=== PATIENT | male | born 1955 | race Caucasian/White ===

== ENCOUNTER 2020-08-29 08:24 | Outpatient (CLI) | payer BC, SELFPAY ==
--- NOTE | 2020-08-29 09:00 | CT_ITS ---
WS: [id number] CT RIGHT HIP, NONCONTRAST. HISTORY: M25.551 - Pain in right hip Technique: All CT scans at [facility] use at least one of these dose optimization techniq ues: automated exposure control; mA and/or kV adjustment per patient size (includes targeted exams wh ere dose is matched to clinical indication); or iterative reconstruction. DLP: 2038.59 mGy.cm COMPARISON: 09/28/2011 radiograph. No acute fracture or displacement. Mild diffuse narrowing of the hip joint. Slightly more medial migr ation with near bone upon bone contact along the posterior medial acetabulum. Mild osteophytic ridgin g around the acetabulum. There is a subchondral cyst measuring 13 mm in the posterior acetabulum. No loose bodies or fracture. No SI joint erosions or fusion. No soft tissue abnormality. CT/CT hip RT wo con* [id number] IMPRESSION: 1. Mild degenerative joint disease involving the RIGHT hip. 2. There is mild bone upon bone contact involving the posterior medial femoral head and acetabulum. 3. Mild osteophytic ridging around the acetabulum.
== END 2020-08-29 08:25 | disposition home or self-care (01) ==
LOC: RAD 08:27
PROVIDERS: PCP Nurse Practitioner Family; Visit Provider Nurse Practitioner Family
DX: M16.11 Unilateral primary osteoarthritis, right hip (principal)
CPT/HCPCS: 73700

== ENCOUNTER 2020-12-02 13:05 | Emergency (ER) | payer BC, SELFPAY ==
[2020-12-02 13:52] VITALS: BP 130/82; PULSE 91; RESP 18; TEMP 36.6; O2SAT 100; BMI 32.3
[2020-12-02 15:58] VITALS: BP 127/86; PULSE 57; RESP 18; O2SAT 100
[2020-12-02 16:00] VITALS: PULSE 55
--- NOTE | 2020-12-02 16:13 | ED_ITS ---
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 Patient was in the hospital with Lovenox and then discharged home on Xarelto after being stable. Patient's pulse ox is 99% on room air blood pressure 127/86 heart rate 55. Patient does not have any acute distress. Patient does not wearing a leg stocking. Patient has no complaints of chest pain. Patient states he was discharged home and advised to follow-up with his primary care physician but his PCP is out of town on vacation. Patient states he has not some questions and wanted to get a second opinion on his treatment and care. I did offer to get the patient's medical records from previous facility and evaluation but the patient declined. Mainly just wanted discuss options with PE and DVT treatment and options. 1-0 nylon he would be on the medications and we discussed compression stockings and PO hoses. Patient has no specific medical complaints other than just information request only MD Complaint: extremity pain and extremity swelling Onset (ago): day(s) Pain Consistency: constant Location: right and lower extremity Associated symptoms: Deny chest pain, fever(s) or rash Review of Systems General: Reports: 10 or more systems reviewed and unremarkable except in HPI and below Const: Denies: fever(s), chills, body aches or fatigue Eyes: Denies: change in vision or blurry vision ENMT: Denies: throat pain, hoarseness or mouth pain Card: Denies: chest pain, palpitations, irregular heart rhythm, edema, swelling of feet/ankles or lightheadedness Resp: Denies: dyspnea, productive cough, non-productive cough, wheezing or pain on inspiration GI: Denies: abdominal pain, nausea or vomiting : Denies: flank pain, dysuria, urinary frequency, urinary urgency or urinary hesitancy Musc: Reports: extremity pain and extremity swelling; Denies: neck pain, back pain, joint pain, joint swelling, joint redness, joint warmth or limited range of motion Skin/Breast: Denies: rash, pruritus, erythema or skin tenderness Neuro: Denies: headache(s), numbness in extremities or weakness in extremities Psych: Denies: anxiety or depression PFSH ED PFSH: Surgical History H/O shoulder surgery Family History Father Diabetes Chronic kidney disease (CKD) Mother Dementia Social History Smoking and tobacco status: former smoker Second hand smoke exposure: No Adopted: No Lives independently: Yes Household members: spouse Housing: House Marital status: Physical Exam Const: COMMON NORMALS: no acute distress, average body habitus, patient oriented x3, no limitations, healthy appearing, alert and well nourished HENMT: COMMON NORMALS: normocephalic, atraumatic, hearing grossly normal bilaterally, external ears normal, EAC's normal, TM's normal bilaterally, Normal external nose present, Normal nasal mucous membranes and turbinates present, moist oral mucous membranes, oropharynx normal, dentition normal and gingiva normal HEAD & SCALP: normocephalic and atraumatic NOSE: Normal external nose present and Normal nasal mucous membranes and turbinates present EXTERNAL EAR: Yes external ears normal EXTERNAL AUDITORY CANAL: EAC's normal TYMPANIC MEMBRANE: TM's normal bilaterally Neck/C-Spine: COMMON NORMALS: full ROM, no lymphadenopathy, supple, no meningeal signs, no JVD, Thyroid normal and No carotid bruits THYROID: Thyroid normal Chest: COMMONS NORMALS: normal inspection of the chest, normal palpation of entire chest wall, normal inspection of the breasts and normal palpation of the breasts Breast/axilla inspection: Yes normal inspection of the breasts BREAST/AXILLA PALPATION: Yes normal palpation of the breasts Resp: COMMON NORMALS: normal respiratory effort, No retractions, No use of accessory muscles, clear to auscultation bilaterally and percussion normal AUSCULTATION: clear to auscultation bilaterally PERCUSSION: percussion normal Cardio: COMMON NORMALS: no JVD, regular rate, regular rhythm, S1 normal heart sound present, S2 normal heart sound present, No gallops present (Cardio), No clicks present (Cardio), No murmurs present (Cardio), No rub (Cardio) and Peripheral pulses 2+ throughout RATE: regular rate RHYTHM: regular rhythm HEART SOUNDS: S1 normal heart sound present and S2 normal heart sound present PERIPHERAL PULSES: Peripheral pulses 2+ throughout GI: COMMON NORMALS: Normal to inspection, nondistended, normoactive bowel sounds present, Soft to palpation, non-tender, No hepatosplenomegaly present, no masses and no bruits PALPATION: Yes Soft to palpation and Yes No hepatosplenomegaly present : COMMON NORMALS: Yes no CVA tenderness BLADDER/KIDNEY EXAM: Yes no CVA tenderness Back/Pelvis: COMMON NORMALS: no CVA tenderness, thoracic and lumbar spine normal to inspection, no thoracic nor lumbar tenderness, thoraco-lumbar ROM normal and straight leg raise negative bilaterally Extremity: COMMON NORMALS: normal to inspection, full ROM, capillary refill normal, no joint enlargement, no clubbing, cyanosis or edema, no calf tenderness and no pedal edema Neuro: COMMON NORMALS: patient oriented x3 SENSORIUM/ORIENTATION: Yes alert MENINGEAL SIGNS: Yes no meningeal signs Course Vital Signs: Vital signs: Vital Signs Temperature 97.9 F 12/02/20 13:52 Pulse Rate 91 12/02/20 13:52 Respiratory Rate 18 12/02/20 13:52 Blood Pressure 130/82 12/02/20 13:52 Pulse Oximetry 100 12/02/20 13:52 MDM - Extremity (Nontraumatic) MDM Narrative: Medical decision making narrative: 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 Patient was in the hospital with Lovenox and then discharged home on Xarelto after being stable. Patient's pulse ox is 99% on room air blood pressure 127/86 heart rate 55. Patient does not have any acute distress. Patient does not wearing a leg stocking. Patient has no complaints of chest pain. Patient states he was discharged home and advised to follow-up with his primary care physician but his PCP is out of town on vacation. Patient states he has not some questions and wanted to get a second opinion on his treatment and care. I did offer to get the patient's medical records from previous facility and evaluation but the patient declined. Mainly just wanted discuss options with PE and DVT treatment and options. 1-0 nylon he would be on the medications and we discussed compression stockings and PO hoses. Patient has no specific medical complaints other than just information request only To ease the pain and swelling of a DVT, you can try the following at home: Wear graduated compression stockings. These specially fitted stockings are tight at the feet and become gradually looser up on the leg, creating gentle pressure that keeps blood from pooling and clotting. Elevate the affected leg. Make sure your foot is higher than your hip. Take walks. Aim for walks three to five times a day to improve blood flow to your legs. After you have a DVT, you will need to reduce your risk of future clots by: Taking your medications exactly as your doctor tells you to. Keeping your follow-up appointments with your doctor and the laboratory. These are needed to see how well your treatment is working. If you have never had a DVT , but have an increased risk of developing one, be sure to: Exercise your lower leg muscles if you need to sit still for a long time. Stand up and walk at least every half hour if you are on a long flight. Or get out of the car every hour if you are on a long road trip. Get out of bed and move around as soon as you can after you are sick or have surgery. The sooner you move around, the less chance you have of developing a clot. Take medications or use compression stockings after surgery (if prescribed by your doctor) to reduce your risk of a clot. Follow-up with your doctor as directed to and follow your doctor?s recommendations to reduce your risk of a clot. Discharge Plan Discharge Patient Disposition: Home Clinical Impression: DVT (deep venous thrombosis), Pulmonary embolism, Encounter for medical screening examination Condition: Stable Prescriptions: No Action lisinopril 20 mg tablet 20 mg PO DAILY@0900 RF: 0 hydrochlorothiazide 25 mg tablet 25 mg PO DAILY@0900 RF: 0 oxycodone-acetaminophen 10-325 mg tablet 1 tab PO TID PRN (Reason: Pain) RF: 0 Xarelto DVT-PE Treat 30d Start 15 mg (42)- 20 mg (9) Tablets,Dose Pack 0 ea PO PER PKG DIR RF: 0 Discharge Orders: Discharge ED (Routine); Ordered 12/02/20 Ordered By: Mitesh Bradford Referrals: Brandi Rizo FNP [Primary Care Provider] - Discharge Diet: Advance as tolerated Discharge Activity: Increase activity as tolerated Patient Instructions: Opioid Safety Activity Restrictions/Additional Instructions: To ease the pain and swelling of a DVT, you can try the following at home: Wear graduated compression stockings. These specially fitted stockings are tight at the feet and become gradually looser up on the leg, creating gentle pressure that keeps blood from pooling and clotting. Elevate the affected leg. Make sure your foot is higher than your hip. Take walks. Aim for walks three to five times a day to improve blood flow to your legs. After you have a DVT, you will need to reduce your risk of future clots by: Taking your medications exactly as your doctor tells you to. Keeping your follow-up appointments with your doctor and the laboratory. These are needed to see how well your treatment is working. If you have never had a DVT , but have an increased risk of developing one, be sure to: Exercise your lower leg muscles if you need to sit still for a long time. Stand up and walk at least every half hour if you are on a long flight. Or get out of the car every hour if you are on a long road trip. Get out of bed and move around as soon as you can after you are sick or have surgery. The sooner you move around, the less chance you have of developing a clot. Take medications or use compression stockings after surgery (if prescribed by your doctor) to reduce your risk of a clot. Follow-up with your doctor as directed to and follow your doctor?s recommendations to reduce your risk of a clot. For constipation take [id number] Senokot 8.6 mg daily. May also mix up will recall a brown cow. Mix 4 ounces of prune juice with 2 tablespoons of salted butter and 2 ounces of milk of magnesium heat and microwave until bladder is softened mix and serve warm do not drink hot. May take daily until symptoms are relieved. Coding Level of Care Code ED Client Care Specialist for Angelo Guzman
[2020-12-02 16:15] VITALS: BP 127/86; PULSE 54; RESP 16; O2SAT 98
[2020-12-02 16:28] VITALS: BP 127/86; PULSE 55; RESP 18; TEMP 37.2; O2SAT 98
== END 2020-12-02 16:33 | disposition home or self-care (01) ==
PROVIDERS: Emergency Provider Emergency Medicine; PCP Nurse Practitioner Family
DX: I26.99 Other pulmonary embolism without acute cor pulmonale (principal); I82.409 Acute embolism and thrombosis of unspecified deep veins of unspecified lower extremity
CPT/HCPCS: 99282

== ENCOUNTER 2021-03-10 09:48 | Outpatient (CLI) | payer BC, SELFPAY ==
--- NOTE | 2021-03-10 10:15 | USCV_ITS ---
Blair Alberto Age: 65 Gender: M : 1955 Exam Date: 03/10/2021 10:15 Ordering Phys: Woodrow Cardona MD Technologist: Emmanuelle Crump Exam Location: [facility] [place]_ Indication: H/O RLE DVT. PT ON BLOOD THINNERS HISTORY: History of deep venous thrombosis. PROCEDURES: Venous duplex imaging was performed in bilateral lower extremities. The following venous structures were evaluated: common femoral vein, profunda vein, proximal portion of the greater saphenous vein, superficial femoral vein, and the popliteal vein. In addition, the posterior tibial and peroneal trunk were evaluated. Serial compression, augmentation maneuvers, and spectral Doppler flow evaluation were performed. FINDINGS: Evidence of indeterminate partial deep vein thrombosis in the right popliteal vein with normal flow dynamics. Clot is retracting suggesting may not be acute. The remaining veins are normal. CONCLUSIONS Indeterminate but likely chronic partial DVT right popliteal vein. Dr. Amparo Heredia DO (Electronically Signed) Final Date: 10 March 2021 11:22 S
[2021-03-10 11:21] LABS: D Dimer <= 0.27 ug/mIFEU (0-0.59)
[2021-03-10 11:30] LABS: Anion Gap 14.2 (5-19); Blood Urea Nitrogen 19 mg/dL (8-23); Calcium 9.1 mg/dL (8.5-10.5); Carbon Dioxide 27 mmol/L (22-29); Chloride 105 mmol/L (98-107); Glucose 86 mg/dL (65-115); Osmolality Calculated 296 mOsm/kg (285-295); Potassium 4.2 mmol/L (3.5-5.1); Sodium 142 mmol/L (136-145)
== END 2021-03-10 09:49 | disposition home or self-care (01) ==
LOC: RAD 09:54
PROVIDERS: PCP Nurse Practitioner Family; Visit Provider Internal Medicine Pulmonary Disease
DX: I26.99 Other pulmonary embolism without acute cor pulmonale (principal); I82.431 Acute embolism and thrombosis of right popliteal vein
CPT/HCPCS: 80048; 85378; 93970

== ENCOUNTER 2021-04-01 10:33 | Outpatient (CLI) | payer BC, SELFPAY ==
--- NOTE | 2021-04-01 11:30 | CT_ITS ---
WS: [id number] CTA scan of the chest with IV contrast. Additional two-dimensional coronal and sagittal reconstructio n and MIP images was performed. 04/01/2021. Clinical Data: I26.99 - Other pulmonary embolism without acute cor pulmo... Comparison: CTA chest, 11/29/2020. DLP: 818.[address] scans at [facility] use at least one of these dose optimization techniques: automated e xposure control; mA and/or kV adjustment per patient size (includes targeted exams where dose is matc hed to clinical indication); or iterative reconstruction. Findings: The central pulmonary arteries and peripheral pulmonary arteries fill normally with no evidence of in traluminal filling defects. No pulmonary embolic disease is noted. No nodules, masses or effusions are seen. No pneumonia or pneumothorax is seen. The heart size is nor mal with no pericardial effusion. There is minimal coronary artery calcification. The pulmonary arter ial system and thoracic aorta demonstrate no abnormalities or dilatations. There is no axillary or si gnificant mediastinal adenopathy. There is a small hiatal hernia. The thyroid gland shows normal enha ncement. The trachea bifurcates into the bronchi. The upper abdomen shows no abnormalities. The visualized liver, spleen, pancreas, gallbladder, adrena l glands and superior poles of the kidneys are not remarkable. The bones of the thoracic and upper lumbar spine show osteoarthritis. CT/CT angio chest PE protcl [id number] Impression: 1. Negative for pulmonary embolic disease. 2. Negative for acute cardiopulmonary disease.
[2021-04-01] MEDS: iohexol 350 mg/mL 100 mL Btl IV (11:43)
== END 2021-04-01 10:34 | disposition home or self-care (01) ==
PROVIDERS: PCP Nurse Practitioner Family; Visit Provider Internal Medicine Pulmonary Disease
DX: I26.99 Other pulmonary embolism without acute cor pulmonale (principal)
CPT/HCPCS: 71275; Q9967

== ENCOUNTER 2021-07-17 14:32 | Outpatient (CLI) | payer MEDICARE, SELFPAY ==
--- NOTE | 2021-07-17 15:00 | USCV_ITS ---
Blair Alberto Age: 66 Gender: M : 1955 Exam Date: 07/17/2021 14:55 Ordering Phys: Woodrow Cardona MD Technologist: RAYMOND [place]am [place] [facility] [place]ication: DVT HISTORY: History of deep venous thrombosis. PROCEDURES: Venous duplex imaging was performed in bilateral lower extremities. The following venous structures were evaluated: common femoral vein, profunda vein, proximal portion of the greater saphenous vein, superficial femoral vein, and the popliteal vein. In addition, the posterior tibial and peroneal trunk were evaluated. FINDINGS: Normal 2-D Doppler and augmentation and compressibility throughout the lower extremity venous structures. Additional imaging through the proximal calf veins also reveals no thrombus. Limited evaluation of the greater saphenous vein is patent with no thrombus. CONCLUSIONS No DVT bilateral lower extremities. Dr. Amparo Heredia DO (Electronically Signed) Final Date: 17 July 2021 16:17 S
== END 2021-07-17 14:33 | disposition home or self-care (01) ==
PROVIDERS: PCP Nurse Practitioner Family; Visit Provider Internal Medicine Pulmonary Disease
DX: I82.431 Acute embolism and thrombosis of right popliteal vein (principal); Z74.09 Other reduced mobility
CPT/HCPCS: 93970

== ENCOUNTER → 2022-04-02 09:07 | Outpatient (BNVA) | payer MEDICARE, SELFPAY | PROVIDERS: PCP Nurse Practitioner Family; Visit Provider Internal Medicine Pulmonary Disease | DX: J84.10 Pulmonary fibrosis, unspecified (principal); Z86.718 Personal history of other venous thrombosis and embolism; Z86.711 Personal history of pulmonary embolism; K76.0 Fatty (change of) liver, not elsewhere classified; Z79.01 Long term (current) use of anticoagulants; Z91.89 Other specified personal risk factors, not elsewhere classified | CPT/HCPCS: 80048; 83735; 85378; 99214 ==

== ENCOUNTER 2022-08-25 06:33 | Outpatient (CLI) | payer MEDICARE, SELFPAY ==
--- NOTE | 2022-08-25 07:00 | CT_ITS ---
WS: [id number] CT HEAD NONCONTRAST HISTORY: R42 - Dizziness and giddiness TECHNIQUE: Contiguous axial imaging performed through the brain in 2.5 mm imaging. Bone and soft tiss ue windows. Sagittal and coronal reformats reviewed. All CT scans at [facility] use at least one of these dose optimization techniques: automated exposure control; mA and/or kV adjustment per pa tient size (includes targeted exams where dose is matched to clinical indication); or iterative recon struction. DLP: 1190.29 mGy.cm COMPARISON: None available. No acute intracranial hemorrhage, midline shift or mass effect. Very mild cerebral atrophy and small vessel ischemic disease. No volume loss or acute infarct. Ventricles: Normal size with no hydrocephalus. No inferior displacement of cerebellar tonsils. Paranasal sinuses: As visualized are clear. Mastoid air cells: Well pneumatized. Calvarium and scalp: Skull is intact with no soft tissue edema or swelling. CT/CT head wo con* [id number] IMPRESSION: 1. No acute intracranial hemorrhage or edema. 2. Very mild atrophy and small vessel ischemic disease.
== END 2022-08-25 06:34 | disposition home or self-care (01) ==
LOC: RAD 06:35
PROVIDERS: PCP Nurse Practitioner Family; Visit Provider Nurse Practitioner Family
DX: R42 Dizziness and giddiness (principal); R29.6 Repeated falls; R41.3 Other amnesia; I67.82 Cerebral ischemia; G31.9 Degenerative disease of nervous system, unspecified
CPT/HCPCS: 70450

== ENCOUNTER → 2022-08-26 09:35 | Outpatient (BNVA) | payer MEDICARE, SELFPAY | PROVIDERS: PCP Nurse Practitioner Family; Visit Provider Nurse Practitioner Family | DX: I10 Essential (primary) hypertension (principal); R53.83 Other fatigue | CPT/HCPCS: 80053; 80061; 85025 ==

== ENCOUNTER 2022-09-14 10:54 | Outpatient (CLI) | payer MEDICARE, SELFPAY ==
--- NOTE | 2022-09-14 11:00 | MR_ITS ---
WS: [id number] MRI RIGHT HIP without CONTRAST. COMPARISON: No similar studies. CT RIGHT hip 08/29/2020. Multiplanar, multisequence imaging is performed without contrast. No acute fractures or marrow edema. SI joints are normal. No significant loss of joint space involvin g either hip. There is very subtle increased signal on the STIR and T2 sequences in the far lateral superior RIGHT labrum. Most consistent with a subtle labral tear. There is also slight increased amount of fluid in the RIGHT hip joint as compared to the LEFT although still only minimal amount of fluid. No fractures or marrow edema. No osteochondral lesions. Reidentified is the subchondral cyst in the p osterior acetabulum which was noted on the prior CT. Subchondral cyst measures 14 x 7 mm. No loose kaylie dies are identified. Negative urinary bladder. No free fluid in the pelvis. Small right-sided hydrocele. MR/MR hip RT wo con* [id number] IMPRESSION: 1. Subtle abnormal signal in the RIGHT hip labrum. Associated very minimal inc rease fluid as compared to the LEFT hip. Highly suspicious for a labral tear. 2. No marrow edema or fracture. No osteochondral lesions.
== END 2022-09-14 10:55 | disposition home or self-care (01) ==
PROVIDERS: PCP Nurse Practitioner Family; Visit Provider Nurse Practitioner Family
DX: M25.551 Pain in right hip (principal)
CPT/HCPCS: 73721

== ENCOUNTER → 2022-10-18 07:59 | Outpatient (BNVA) | payer MEDICARE, SELFPAY | PROVIDERS: PCP Nurse Practitioner Family; Visit Provider Specialist | DX: M25.551 Pain in right hip (principal); S73.191A Other sprain of right hip, initial encounter; X58.XXXA Exposure to other specified factors, initial encounter | CPT/HCPCS: 73502; 99204 ==

== ENCOUNTER → 2022-11-15 07:56 | Outpatient (BNVA) | payer MEDICARE, SELFPAY | PROVIDERS: PCP Nurse Practitioner Family; Visit Provider Anesthesiology Pain Medicine | DX: M51.16 Intervertebral disc disorders with radiculopathy, lumbar region (principal) | CPT/HCPCS: 99204 ==

== ENCOUNTER → 2022-11-15 10:31 | Outpatient (BNVA) | payer MEDICARE, SELFPAY | PROVIDERS: PCP Nurse Practitioner Family; Visit Provider Anesthesiology Pain Medicine | DX: M54.16 Radiculopathy, lumbar region (principal) | CPT/HCPCS: 72110 ==

== ENCOUNTER 2022-12-20 08:32 | Outpatient (CLI) | payer MEDICARE, SELFPAY ==
--- NOTE | 2022-12-20 08:45 | MR_ITS ---
WS: [id number] MRI LUMBAR SPINE NONCONTRAST TECHNIQUE: Sagittal T1, T2 and STIR imaging. Axial T1 and T2 imaging. CLINICAL INFORMATION: M54.16 - Radiculopathy, lumbar region COMPARISON: CT lumbar 2016 and MRI 2012 FINDINGS: Mild lumbar curve. No acute compression. Disc space narrowing worse L4-L5 with endplate degenerative change. Slight retrolisthesis L4 on L5. Mild disc bulging L3-L4. . L1-L2: Mild facet arthropathy. Spinal canal and foramen are patent. L2-L3: Mild facet arthropathy. Spinal canal and foramen are patent. L3-L4: Mild disc bulging with narrowing of the RIGHT greater than LEFT subarticular recess. Mild cent ral canal stenosis. Moderate facet arthropathy. Mild LEFT greater than RIGHT foraminal narrowing. L4-L5: Disc osteophyte complex with endplate ridging. Narrowing of the RIGHT subarticular recess. Mil d to moderate RIGHT and mild LEFT foraminal narrowing. Moderate facet arthropathy. L5-S1: No significant disc bulging. Spinal canal and foramen are patent. Moderate facet arthropathy. Visualized pelvic bony structures: T2 hyperintense lesion in the S3 vertebral body appears stable sin ce 2012 likely atypical hemangioma. Paravertebral soft tissues: Normal. Tiny protrusion in the cervical spine at C5-C6. MR/MR lumbar spine wo con* [id number] IMPRESSION: 1. Mild lumbar curve. No acute compression. Slight retrolisthesis L4 on L5. 2. Disc desiccation worse L4-L5 with slight retrolisthesis. 3. Mild central canal stenosis L3-L4 and impingement RIGHT subarticular recess and traversing RIGHT L4 nerve root. 4. Mild LEFT greater than RIGHT L3-L4 foraminal narrowing. 5. Mild to moderate RIGHT L4-L5 foraminal narrowing. Slight impingement on the traversing RIGHT L5 nerve root at the L4-L5 level. 6. Moderate facet arthropathy L3-L5.
== END 2022-12-20 08:33 | disposition home or self-care (01) ==
LOC: RAD 08:34
PROVIDERS: PCP Nurse Practitioner Family; Visit Provider Anesthesiology Pain Medicine
DX: M54.16 Radiculopathy, lumbar region (principal); M47.896 Other spondylosis, lumbar region
CPT/HCPCS: 72148; 99204

== ENCOUNTER → 2022-12-27 08:33 | Outpatient (BNVA) | payer MEDICARE, SELFPAY | PROVIDERS: PCP Nurse Practitioner Family; Visit Provider Anesthesiology Pain Medicine | DX: M51.16 Intervertebral disc disorders with radiculopathy, lumbar region (principal) | CPT/HCPCS: 99214 ==

== ENCOUNTER → 2023-02-23 14:42 | Outpatient (BNVA) | payer MEDICARE, SELFPAY | PROVIDERS: PCP Nurse Practitioner Family; Visit Provider Nurse Practitioner Family | DX: M25.50 Pain in unspecified joint (principal); G51.0 Bell's palsy; M10.9 Gout, unspecified | CPT/HCPCS: 84550; 85025 ==

== ENCOUNTER → 2023-04-25 08:31 | Outpatient (BNVA) | payer MEDICARE, SELFPAY | PROVIDERS: PCP Nurse Practitioner Family; Visit Provider Anesthesiology Pain Medicine | DX: M51.16 Intervertebral disc disorders with radiculopathy, lumbar region (principal) | CPT/HCPCS: 99214 ==

== ENCOUNTER → 2023-05-09 13:57 | Outpatient (BNVA) | payer MEDICARE, SELFPAY | PROVIDERS: PCP Nurse Practitioner Family; Visit Provider Anesthesiology Pain Medicine | DX: M54.16 Radiculopathy, lumbar region (principal) | CPT/HCPCS: 64483; 64484; J1100; J3490 ==

== ENCOUNTER → 2023-05-10 08:08 | Outpatient (BNVA) | payer MEDICARE, SELFPAY | PROVIDERS: PCP Nurse Practitioner Family; Referring Provider Anesthesiology Pain Medicine; Visit Provider Orthopaedic Surgery | DX: M51.16 Intervertebral disc disorders with radiculopathy, lumbar region (principal); M48.062 Spinal stenosis, lumbar region with neurogenic claudication | CPT/HCPCS: 72100; 99204 ==

== ENCOUNTER → 2023-05-24 07:47 | Outpatient (BNVA) | payer MEDICARE, SELFPAY | PROVIDERS: PCP Nurse Practitioner Family; Visit Provider Orthopaedic Surgery | DX: M48.062 Spinal stenosis, lumbar region with neurogenic claudication (principal); M51.16 Intervertebral disc disorders with radiculopathy, lumbar region; R25.1 Tremor, unspecified; Z01.89 Encounter for other specified special examinations | CPT/HCPCS: 36415; 80053; 81003; 84439; 84443; 84481; 85025; 99214 ==

== ENCOUNTER → 2023-06-07 14:40 | Outpatient (BNVA) | payer MEDICARE, SELFPAY | PROVIDERS: PCP Nurse Practitioner Family; Visit Provider Nurse Practitioner Family | DX: M10.9 Gout, unspecified | CPT/HCPCS: 84550 ==

== ENCOUNTER 2023-06-13 10:56 | Day surgery (SDC) | payer MEDICARE, SELFPAY ==
[2023-06-13] VITALS (10 sets, daily range): BP systolic 100–154; BP diastolic 58–88; PULSE 55–78; RESP 14–21; TEMP 36.1–36.4; O2SAT 97–100; BMI 31.8
[2023-06-13] MEDS: sodium chloride 0.9% 1,000 ML 30 ML IV (11:43)
--- NOTE | 2023-06-13 13:37 | W.PM.OPSUD ---
Surgery/Procedure H&P Update DATE OF PROCEDURE: June 13, 2023 DATE H&P PERFORMED: 06/09/23 H&P UPDATE INFORMATION: I have reviewed H&P completed within last 30 days, I have examined patient prior to procedure and No changes to prior documentation PREOP DIAGNOSIS: Lumbar stenosis PLANNED PROCEDURE: Operation Date: 06/13/23 12:50 Proposed Procedures p Right L3/4 L4/5 Lumbar Spine Decompression(Right) - Anoop Dubon DO
[2023-06-13] MEDS: ceFAZolin 2,000 MG in sodium chloride 0.9% (plus) 50 ML 100 MG IV (14:06)
[2023-06-13] MEDS: thrombin 5,000 unit SDV 5000 UNIT XX (14:36)
[2023-06-13] MEDS: lidocaine-epi 1% 20 mL INJ INJECTION (14:36)
--- NOTE | 2023-06-13 15:44 | PM.OP ---
Operative Report Date of procedure: June 13, 2023 Pre-op diagnosis: Lumbar stenosis with neurogenic claudication Post-op diagnosis: same Procedure done: 1. L3-4 laminectomy with partial facetectomy 2. L4-5 laminectomy with partial facetectomy Surgeon: Anoop Dubon DO Estimated blood loss (mL): 20 Procedure: 1. L3-4 laminectomy with partial facetectomy 2. L4-5 laminectomy with partial facetectomy Patient is brought to the operative suite. After undergoing anesthesia they are placed in the prone position. All areas of impingement are well padded. Patient is then prepped and draped in the normal sterile fashion. A skin incision is made over the L3-4 level. This is confirmed under c-arm guidance. A series of dilators are passed and the tubular retractor is docked on the L 3 lamina. A bovie is used to clear the soft tissue off the lamina and the L 3 4 facet joint. A high speed poli is then used to perform the laminectomy and take down the medial aspect of the L 3 4 facet joint. A kerrison rongeure was then used to take down the remaining lamina and smooth the edge of the laminectomy up to the point where the ligamentum flavum attaches. Attention was then brought to the medial aspect of the facet joint. The remaining medial aspect of the superior and inferior aspect of the facet joint were taken down with the kerrison from the pedicle of L 3 to L 4. The facet joint had significant hypertrophy. Attention was then brought to the Ligamentum Flavum. The ligament was taken down from the lamina of L3 to L4 and out medially to the remaining facet joint. The ligament was thick. The dura was then exposed. The dura was in good repair. The L3 nerve was then traced with a curette out the L3/4 foramen and found to be adequately decompressed. The L4 nerve was traced with a curette around the L4 pedicle. The lateral recess was opened with a kerrison helping to further decompress the L4 nerve. Wound is then irrigated copiously with saline and surgiflo is used to stop any bleeding. The tubular retractor is removed and the A skin incision is made over the L4/5 level. This is confirmed under c-arm guidance. A series of dilators are passed and the tubular retractor is docked on the L4 lamina. A bovie is used to clear the soft tissue off the lamina and the L 4/5 facet joint. A high speed poli is then used to perform the laminectomy and take down the medial aspect of the L 4/5 facet joint. A kerrison rongeure was then used to take down the remaining lamina and smooth the edge of the laminectomy up to the point where the ligamentum flavum attaches. Attention was then brought to the medial aspect of the facet joint. The remaining medial aspect of the superior and inferior aspect of the facet joint were taken down with the kerrison from the pedicle of L4 to L 5. The facet joint had significant hypertrophy. Attention was then brought to the Ligamentum Flavum. The ligament was taken down from the lamina of L4 to L5 and out medially to the remaining facet joint. The ligament was thick. The dura was then exposed. The dura was in good repair. The L4 nerve was then traced with a curette out the L4/5 foramen and found to be adequately decompressed. The L5 nerve was traced with a curette around the L5 pedicle. The lateral recess was opened with a kerrison helping to further decompress the L5 nerve. Wound is then irrigated copiously with saline and surgiflo is used to stop any bleeding. The tubular retractor is removed and the wound is closed with vicryl and monocryl suture. Glue is then used to protect the wound. A sterile dressing is then placed. Patient was then placed in the supine position and transferred to the PACU in stable condition.
[2023-06-13] MEDS: HYDROcodone-acetaminophen 5-325 mg Tablet 1 TAB PO (16:24)
--- NOTE | 2023-06-13 16:40 | XR_ITS ---
WS: [id number] C-ARM RADIOGRAPHS LUMBAR SPINE; 5 IMAGES HISTORY: Decompression. COMPARISON: None available. Intraoperative imaging during lumbar spine decompression. Marker is indicating L4-5 level. IMPRESSION: Intraoperative imaging during spine decompression.
[2023-06-13] MEDS: ondansetron 2 mg/ML SDV 2 mL 4 MG IVP (16:46)
--- NOTE | 2023-06-13 17:56 | P.ANESASSM_ITS ---
Pre-Anesthetic Assessment Height/Weight: Height 1.8 m Weight 103.419 kg Temp Pulse Resp BP Pulse Ox O2 Del Method O2 Flow Rate 97.3 F L 68 14 138/88 100 Room Air 6 06/13/23 16:00 06/13/23 16:50 06/13/23 16:50 06/13/23 16:50 06/13/23 16:50 06/13/23 16:50 06/13/23 15:35 Preop Diagnosis: Lumbar stenosis Operation Date: 06/13/23 12:50 Proposed Procedures p Right L3/4 L4/5 Lumbar Spine Decompression(Right) - Anoop Dubon, Familial anesthetic complications: none Was Beta Mirtha taken within 24 hours: N/A Was Clonidine taken within 24 hours: N/A Last intake: Intake Last Liquid Date 06/12/23 Last Liquid Time 17:00 Last Solid Date 06/12/23 Last Solid Time 13:00 Social No alcohol and No tobacco Exam alert, oriented x 3, clear to auscultation bilaterally and regular rate & rhythm Airway Submandibular: within normal limits Cervical ROM: within normal limits Mallampati: Class II Dentition: full CV/HEM Hypertension Musc/skel Lower Back Pain and Osteoarthritis/DJD Anesthetic Plan ASA status: 3 Anesthesia: General Medications/Allergies Home Medications Medication Instructions Recorded Confirmed Last Taken Type acetaminophen 325 mg capsule 650 mg PO QID PRN Pain 11/15/22 06/13/23 1 Week Ago History ~06/06/23 colchicine (gout) 0.6 mg capsule 0.6 mg PO BID 3 days #6 caps 06/07/23 06/13/23 1 Week Ago Rx ~06/06/23 apixaban 5 mg tablet (Eliquis) 5 mg PO BID 06/10/23 06/13/23 05/27/23 History hydrochlorothiazide 12.5 mg capsule 12.5 mg PO DAILY 06/10/23 06/13/23 06/12/23 History lisinopril 30 mg tablet 30 mg PO DAILY 06/10/23 06/13/23 06/12/23 History hydrocodone 5 mg-acetaminophen 325 1 - 2 tab PO .Q4-6H #40 tabs 06/13/23 Unknown Rx mg tablet Allergies Allergy/AdvReac Type Severity Reaction Status Date / Time No Known Allergies Allergy Verified 06/13/23 11:21 [facility] Anesthesia Surgical History H/O shoulder surgery Family History Father Diabetes Chronic kidney disease (CKD) Hypertension Mother Dementia Brother Hypertension Grandmother Stroke Denies family history of Hyperlipidemia Lung disease Cancer Social History Smoking and tobacco/nicotine status: former use of tobacco/nicotine Quit status (tobacco/nicotine): has quit using Year quit tobacco: 1975 3yrhx Second hand smoke exposure: No Alcohol intake: never Substance/Drug Use: never Adopted: No Lives independently: Yes Household members: spouse Housing: House Marital status: service: No Current occupational status: employed Pets and animals: Yes Do you think of yourself as: Straight/Heterosexual Current gender identity: Male Data Anesthesia Cardiac Studies: No Data to Display
--- NOTE | 2023-06-13 17:58 | ANE.PACU2 ---
Inpatient post-anesthesia follow up: Airway intact: Yes Vital signs: Temperature 97.3 F Pulse Rate 68 Respiratory Rate 14 Blood Pressure 138/88 Pulse Oximetry 100 Oxygen Delivery Me thod Room Air Oxygen Flow Rate 6 Fraction of Inspir ed Oxygen Hydration adequate: Yes Nausea and vomiting: No Pain level: 3 Mental status: Baseline
== END 2023-06-13 17:10 | disposition home or self-care (01) ==
PROVIDERS: PCP Nurse Practitioner Family; Visit Provider Orthopaedic Surgery
PROC: (CPT 63005; principal; 2023-06-13 12:40)
DX: M48.062 Spinal stenosis, lumbar region with neurogenic claudication (principal); I10 Essential (primary) hypertension; Z87.891 Personal history of nicotine dependence
CPT/HCPCS: 63047; 63048; 72100; 76000; J0690; J1100; J1170; J2405; J2704; J2710; J3010; J3490; J7030

== ENCOUNTER → 2023-06-21 09:42 | Outpatient (BNVA) | payer MEDICARE, SELFPAY | PROVIDERS: PCP Nurse Practitioner Family; Visit Provider Anesthesiology Pain Medicine | DX: M48.062 Spinal stenosis, lumbar region with neurogenic claudication (principal); M51.16 Intervertebral disc disorders with radiculopathy, lumbar region | CPT/HCPCS: 99214 ==

== ENCOUNTER → 2023-06-28 10:47 | Outpatient (BNVA) | payer MEDICARE, SELFPAY | PROVIDERS: PCP Nurse Practitioner Family; Visit Provider Orthopaedic Surgery | DX: Z47.89 Encounter for other orthopedic aftercare (principal) | CPT/HCPCS: 99024 ==

== ENCOUNTER → 2023-07-15 09:18 | Outpatient (BNVA) | payer MEDICARE, SELFPAY | PROVIDERS: PCP Nurse Practitioner Family; Visit Provider Nurse Practitioner Family | DX: R35.0 Frequency of micturition (principal); I10 Essential (primary) hypertension; R53.83 Other fatigue; K59.00 Constipation, unspecified; J30.1 Allergic rhinitis due to pollen | CPT/HCPCS: 80053; 80061; 81000; 85025 ==

== ENCOUNTER → 2023-08-10 09:09 | Outpatient (BNVA) | payer MEDICARE, SELFPAY | PROVIDERS: PCP Nurse Practitioner Family; Visit Provider Nurse Practitioner Family | DX: M10.9 Gout, unspecified (principal) | CPT/HCPCS: 84550 ==

== ENCOUNTER → 2023-08-19 11:20 | Outpatient (BNVA) | payer MEDICARE, SELFPAY | PROVIDERS: PCP Nurse Practitioner Family; Visit Provider Nurse Practitioner Family | DX: M10.9 Gout, unspecified (principal) | CPT/HCPCS: 84550 ==

== ENCOUNTER → 2023-08-30 13:06 | Outpatient (BNVA) | payer MEDICARE, SELFPAY | PROVIDERS: PCP Nurse Practitioner Family; Visit Provider Orthopaedic Surgery | DX: Z47.89 Encounter for other orthopedic aftercare | CPT/HCPCS: 99024 ==

== ENCOUNTER → 2023-09-05 14:55 | Outpatient (BNVA) | payer MEDICARE, SELFPAY | PROVIDERS: PCP Nurse Practitioner Family; Visit Provider Nurse Practitioner Family | DX: M10.9 Gout, unspecified (principal) | CPT/HCPCS: 84550 ==

== ENCOUNTER → 2023-09-29 07:51 | Outpatient (BNVA) | payer MEDICARE, SELFPAY | PROVIDERS: PCP Nurse Practitioner Family; Visit Provider Psychiatry & Neurology Neurology | DX: G20.C Parkinsonism, unspecified (principal); M54.2 Cervicalgia; R26.81 Unsteadiness on feet; R55 Syncope and collapse; R40.4 Transient alteration of awareness | CPT/HCPCS: 99203 ==

== ENCOUNTER 2023-10-07 12:17 | Outpatient (CLI) | payer MEDICARE, SELFPAY ==
--- NOTE | 2023-10-07 12:30 | USCV_ITS ---
Alberto Pinto Age: 68 Gender: M : 1955 Exam Date: 10/07/2023 12:29 Ordering Phys: Kraig Beaver MD Technologist: CT Exam Location: [facility] [place]_ Indication: dizziness Risk Factors: Previous Vascular Surgery: Right Brachial BP: / Left Brachial BP: / Right Left Velocity (cm/s) Spectral Plaque Velocity (cm/s) Spectral Plaque Syst/Diast Broadening Syst/Diast Broadening 101.40/15.30 Prox CCA 92.50 / 16.50 83.30/ 16.60 Mid CCA 97.50 / 19.70 71.10/ 18.00 Distal CCA 73.80 / 17.90 41.90/ 16.30 Prox ICA 51.30 / 12.70 46.70/ 16.50 Mid ICA 46.90 / 15.20 61.90/ 21.70 Distal ICA 47.80 / 19.10 83.30 ECA 88.50 0.90 ICA/CCA 0.70 Antegrade Vertebral Antegrade 53.20/ 15.10 cm/s 31.50/ 7.60 cm/s Bi Subclavian Bi 117.8 135.7 0 0 FINDINGS Comparison: none available. No significant elevation of systolic or diastolic velocities. Waveforms are normal. CONCLUSIONS Normal carotid doppler ultrasound. Dr. Amparo Heredia DO (Electronically Signed) Final Date: 07 October 2023 14:44 S
== END 2023-10-07 12:18 | disposition home or self-care (01) ==
LOC: RAD 12:18
PROVIDERS: PCP Nurse Practitioner Family; Visit Provider Psychiatry & Neurology Neurology
DX: R42 Dizziness and giddiness (principal)
CPT/HCPCS: 93880

== ENCOUNTER → 2023-10-13 10:34 | Outpatient (BNVA) | payer MEDICARE, SELFPAY | PROVIDERS: PCP Nurse Practitioner Family; Visit Provider Orthopaedic Surgery | DX: M51.16 Intervertebral disc disorders with radiculopathy, lumbar region; M48.062 Spinal stenosis, lumbar region with neurogenic claudication | CPT/HCPCS: 72100; 99213 ==

== ENCOUNTER → 2023-10-18 10:11 | Outpatient (BNVA) | payer MEDICARE, SELFPAY | PROVIDERS: PCP Nurse Practitioner Family; Visit Provider Nurse Practitioner Family | DX: I10 Essential (primary) hypertension (principal) | CPT/HCPCS: 80053 ==

== ENCOUNTER 2023-11-15 07:35 | Outpatient (CLI) | payer MEDICARE, SELFPAY ==
--- NOTE | 2023-11-15 08:00 | MR_ITS ---
WS: [id number] MRI HEAD WITH CONTRAST TECHNIQUE: Sagittal T1, T2 axial, T2 axial FLAIR, axial susceptibility weighted imaging, axial diffus ion weighted images, and coronal T2 images were obtained. Pre and post-T1 axial and post T1 coronal i mages. ADC and FSPGR images. CLINICAL INFORMATION: G20.A1 - Parkinson's disease without dyskinesia, without ... COMPARISON: CT 08/25/2022 FINDINGS: Normal posterior fossa. Normal vascular flow voids at the skull base. No extra-axial fluid collection s. No evidence of mass or mass effect. Mild mucosal thickening in the paranasal sinuses. Mastoid air cells are well aerated. Normal posterio r nasopharynx. No hemosiderin on susceptibility-weighted images. Normal optic chiasm and pituitary infundibulum. Min imal small vessel changes. No significant parenchymal volume loss. Temporal lobes and hippocampal for mations are normal in appearance. No abnormal gadolinium enhancement. Brainstem is normal in appearan ce. MR/MR head wo/w con [id number] IMPRESSION: 1. No evidence of restricted diffusion to suggest acute ischemia. 2. Minimal small vessel changes. No significant parenchymal volume loss. 3. No abnormal gadolinium enhancement. 4. No hemosiderin on susceptibly weighted images. 5. Normal brainstem.
--- NOTE | 2023-11-15 08:45 | MR_ITS ---
WS: [id number] MR CERVICAL SPINE WO/W COMPARISON: None. HISTORY: M54.2 - Cervicalgia TECHNIQUE: Sagittal T1, T2 and T2 inversion recovery; axial T2, T2 gradient and fiesta. Post gadolini um imaging with fat saturation technique. FINDINGS:Straightening of the normal cervical lordosis. No high grade central canal narrowing. Cord s ignal is normal. No abnormal gadolinium enhancement. C2-3: Spinal canal and foramen are patent. C3-4: Mild disc osteophyte complex with endplate ridging. Moderate facet arthropathy. Mild LEFT great er than RIGHT foraminal narrowing. C4-5: Disc osteophyte complex with mild central canal stenosis. Moderate facet arthropathy. Moderate bilateral bony foraminal narrowing. C5-6: Disc osteophyte complex with endplate ridging. Mild central canal stenosis. Slight indentation of the cervical cord. Moderate to severe LEFT and mild RIGHT bony foraminal narrowing. Mild facet art hropathy with uncovertebral joint hypertrophy. C6-7: Disc osteophyte complex with endplate ridging. Mild RIGHT bony foraminal narrowing. Spinal martinez l is patent. C7-T1: Slight anterolisthesis C7 on T1. Spinal canal and foramen are patent. MR/MR cervical spine wo/w [id number] IMPRESSION: 1. Straightening of the normal cervical lordosis. No high-grade central canal narrowing. Cord signal is normal. 2. No abnormal gadolinium enhancement. 3. Mild central canal stenosis due to disc osteophyte protrusions at C4-C5 and C5-C6 with slight indentation on the cervical cord at C5-C6. 4. Moderate to severe LEFT C5-C6 bony foraminal narrowing. 5. Otherwise mild to moderate bony foraminal narrowing described above.
[2023-11-15] MEDS: gadobenate dimeglumine 20 mL vial IV (09:24)
== END 2023-11-15 07:36 | disposition home or self-care (01) ==
LOC: RAD 07:35
PROVIDERS: PCP Nurse Practitioner Family; Visit Provider Psychiatry & Neurology Neurology
DX: M54.2 Cervicalgia (principal); G20.A1 Parkinson's disease without dyskinesia, without mention of fluctuations; R29.2 Abnormal reflex; M48.02 Spinal stenosis, cervical region; M25.78 Osteophyte, vertebrae; M47.892 Other spondylosis, cervical region
CPT/HCPCS: 70553; 72156; A9577

== ENCOUNTER → 2023-11-25 07:53 | Outpatient (BNVA) | payer MEDICARE, SELFPAY | PROVIDERS: PCP Nurse Practitioner Family; Visit Provider Psychiatry & Neurology Neurology | DX: R40.4 Transient alteration of awareness (principal); R55 Syncope and collapse | CPT/HCPCS: 95813 ==

== ENCOUNTER → 2023-11-29 13:24 | Outpatient (BNVA) | payer MEDICARE, SELFPAY | PROVIDERS: PCP Nurse Practitioner Family; Referring Provider Psychiatry & Neurology Neurology; Visit Provider Orthopaedic Surgery | DX: M54.2 Cervicalgia (principal) | CPT/HCPCS: 99214 ==

== ENCOUNTER 2023-12-27 13:17 | Outpatient (CLI) | payer MEDICARE, SELFPAY ==
--- NOTE | 2023-12-27 13:45 | MR_ITS ---
WS: [id number] MRI LUMBAR SPINE WITH CONTRAST TECHNIQUE: Sagittal T1, T2 and STIR imaging. Axial T1 and T2 imaging. Post gadolinium imaging was obt ained. CLINICAL INFORMATION: M48.062 - Spinal stenosis, lumbar region with neurogenic ... COMPARISON: MRI 12/20/2022 FINDINGS: Mild lumbar curve. No acute compression. Slight retrolisthesis L3 on L4 and L4 on L5. Disc bulging wo rse at L3-L4. Disc desiccation worse L4-5 with endplate degenerative changes. This is similar to prev ious. L1-L2: Mild facet arthropathy. Spinal canal and foramina are patent. L2-L3: Mild disc bulging with moderate facet arthropathy. Slight effacement of the ventral thecal sac . Spinal canal and foramen are patent. L3-L4: Mild disc bulging with a shallow RIGHT paracentral protrusion. Interval RIGHT hemilaminectomy. Mild residual narrowing of the RIGHT subarticular recess with mild central canal stenosis. Moderate facet arthropathy. Small bilateral foraminal protrusions with mild bilateral foraminal narrowing. Thi s appears unchanged. L4-L5: Disc desiccation with disc osteophytic ridging. Slight effacement of the ventral thecal sac. I nterval RIGHT hemoglobin ectomy. Slight narrowing of the RIGHT greater than LEFT subarticular recess. Moderate facet arthropathy. Mild bilateral foraminal narrowing appears unchanged. L5-S1: No significant disc bulging. Moderate facet arthropathy. Spinal canal and foramina are patent. Visualized pelvic bony structures: Normal. Paravertebral soft tissues: Normal. MR/MR lumbar spine wo/w con [id number] IMPRESSION: 1. Postoperative changes RIGHT L3-4 and RIGHT L4-5 laminectomies new compared to previous with normal postoperative enhancement. 2. Mild residual central canal stenosis L3-4 with slight narrowing of the RIGH T subarticular recess with a shallow RIGHT subarticular protrusion is similar t o previous. 3. Minimal residual narrowing of the subarticular recess bilaterally at L4-5. 4. Moderate facet arthropathy L3-L5. 5. No other significant changes compared to previous.
[2023-12-27] MEDS: gadobenate dimeglumine 20 mL vial IV (14:23)
== END 2023-12-27 13:18 | disposition home or self-care (01) ==
LOC: RAD 13:17
PROVIDERS: PCP Nurse Practitioner Family; Visit Provider Orthopaedic Surgery
DX: M48.062 Spinal stenosis, lumbar region with neurogenic claudication (principal); M47.896 Other spondylosis, lumbar region; M47.898 Other spondylosis, sacral and sacrococcygeal region; Z98.890 Other specified postprocedural states
CPT/HCPCS: 72158; A9577

== ENCOUNTER → 2024-01-02 15:05 | Outpatient (BNVA) | payer MEDICARE, SELFPAY | PROVIDERS: PCP Nurse Practitioner Family; Visit Provider Psychiatry & Neurology Neurology | DX: G20.C Parkinsonism, unspecified (principal); M54.2 Cervicalgia; R29.2 Abnormal reflex; R40.4 Transient alteration of awareness; R55 Syncope and collapse; R26.81 Unsteadiness on feet; R29.90 Unspecified symptoms and signs involving the nervous system; I10 Essential (primary) hypertension | CPT/HCPCS: 36415; 82607; 82746; 83735; 83785; 84443; 84481; 86592; 86780; 99212 ==

== ENCOUNTER → 2024-01-24 13:20 | Outpatient (BNVA) | payer MEDICARE, SELFPAY | PROVIDERS: PCP Nurse Practitioner Family; Visit Provider Psychiatry & Neurology Neurology | DX: G20.C Parkinsonism, unspecified (principal); R26.81 Unsteadiness on feet; R55 Syncope and collapse; M54.2 Cervicalgia; R29.2 Abnormal reflex; R00.1 Bradycardia, unspecified; R07.9 Chest pain, unspecified; Z86.718 Personal history of other venous thrombosis and embolism; Z79.01 Long term (current) use of anticoagulants; R94.31 Abnormal electrocardiogram [ECG] [EKG] | CPT/HCPCS: 93005; 99212 ==

== ENCOUNTER → 2024-01-24 15:48 | Outpatient (BNVA) | payer MEDICARE, SELFPAY | PROVIDERS: PCP Nurse Practitioner Family; Visit Provider Internal Medicine | DX: R42 Dizziness and giddiness (principal); R00.1 Bradycardia, unspecified; I49.1 Atrial premature depolarization; I49.3 Ventricular premature depolarization; I47.10 Supraventricular tachycardia, unspecified | CPT/HCPCS: 93225 ==

== ENCOUNTER 2024-02-15 11:01 | Outpatient (CLI) | payer MEDICARE, SELFPAY ==
--- NOTE | 2024-02-15 11:15 | USCV_ITS ---
Blair Alberto Age: 68 Gender: M : 1955 Exam Date: 02/15/2024 11:11 Ordering Phys: Arsenio Wallace M.D ([email or web address]) Technologist: Exam Location: [facility] [place] Indication: cp sob BP: 126 / 80 HR: 62 Rhythm: Sinus Technical Quality: Adequate MEASUREMENTS (Male / Female) Normal Values 2D ECHO LV Diastolic Diameter PLAX 4.2 cm 4.2 - 5.9 / 3.9 - 5.3 cm IVS Diastolic Thickness 1.5 cm 0.6 - 1.0 / 0.6 - 0.9 cm IVS Systolic Thickness 1.6 cm LVPW Diastolic Thickness 1.6 cm 0.6 - 1.0 / 0.6 - 0.9 cm LVPW Systolic Thickness 1.6 cm LVOT Diameter 2.1 cm LV Ejection Fraction 2D Teich 65.2 % LV Ejection Fraction MOD 4C 69.6 % LV Ejection Fraction MOD 2C 67.3 % LV Ejection Fraction 2C AL 67.5 % LA Diameter 3.3 cm RA Systolic Volume 4C AL 33.6 ml RA Systolic Volume 4C MOD 32.9 ml Aorta at Sinotubular Diameter 3.0 cm IVC Diameter 2.2 cm M-MODE LA Ao Ratio MM 1.2 AV Cusp Separation MM 2.7 cm DOPPLER AV Peak Velocity 138.0 cm/s LVOT Peak Velocity 98.0 cm/s AV Area Cont Eq vti 2.5 cm squared AV Area Cont Eq pk 2.4 cm squared MV Peak Velocity 103.0 cm/s MV Area PHT 3.3 cm squared Mitral E to A Ratio 1.2 TR Peak Velocity 272.0 cm/s TR Peak Gradient 29.6 mmHg TV Peak E Velocity 100.0 cm/s Right Atrial Pressure 3.0 mmHg Pulmonary Artery Systolic Pressu 32.6 mmHg FINDINGS Left Ventricle Left ventricle is normal in size. LV systolic function is normal with EF of 55 to 60%. No regional wall motion abnormalities are seen Right Ventricle Normal in size and function Right Atrium Normal in size Left Atrium Normal in size Mitral Valve Structurally normal mitral valve. Trace mitral regurgitation Aortic Valve Structurally normal aortic valve. No significant stenosis or regurgitation. Tricuspid Valve Mild tricuspid regurgitation. Pulmonary artery systolic pressure is normal. Pulmonic Valve Not well visualized Pericardium Normal Aorta Normal in size IVC Appears to be normal CONCLUSIONS LV systolic function is normal with EF 55 to 60%. Trace mitral regurgitation Mild tricuspid regurgitation No comparison studies are available. Arsenio Wallace MD (Electronically Signed) Final Date: 21 February 2024 10:52 S
== END 2024-02-15 11:02 | disposition home or self-care (01) ==
LOC: RAD 11:02
PROVIDERS: PCP Nurse Practitioner Family; Visit Provider Internal Medicine
DX: R07.9 Chest pain, unspecified (principal)
CPT/HCPCS: 93306

== ENCOUNTER → 2024-04-26 14:08 | Outpatient (BNVA) | payer MEDICARE, SELFPAY | PROVIDERS: PCP Nurse Practitioner Family; Visit Provider Internal Medicine | DX: I10 Essential (primary) hypertension (principal); R00.1 Bradycardia, unspecified; Z87.891 Personal history of nicotine dependence; Z86.711 Personal history of pulmonary embolism; Z79.01 Long term (current) use of anticoagulants; Z86.718 Personal history of other venous thrombosis and embolism | CPT/HCPCS: 99213 ==

== ENCOUNTER → 2024-05-23 08:40 | Outpatient (BNVA) | payer MEDICARE, SELFPAY | PROVIDERS: PCP Nurse Practitioner Family; Visit Provider Nurse Practitioner Family | DX: I10 Essential (primary) hypertension (principal); Z79.899 Other long term (current) drug therapy; H65.02 Acute serous otitis media, left ear | CPT/HCPCS: 80053; 80061; 85025 ==

== ENCOUNTER 2024-06-25 14:03 | Emergency (ER) | payer MEDICARE, SELFPAY ==
[2024-06-25] VITALS (10 sets, daily range): BP systolic 122–138; BP diastolic 73–84; PULSE 48–83; RESP 16–19; TEMP 36.7; O2SAT 97–99; BMI 32.6
--- NOTE | 2024-06-25 14:24 | CTR_ITS ---
PROCEDURE INFORMATION: Exam: CTA Head With Contrast, Arteriography Exam date and time: 06/25/2024 5:26 PM Age: 69 years old Clinical indication: Pain; Headache TECHNIQUE: Imaging protocol: Computed tomographic angiography of the head with contrast. Exam focused on the arteries. 3D rendering (Not supervised by radiologist): MIP and/or 3D reconstructed images were created by the technologist. Radiation optimization: All CT scans at this facility use at least one of these dose optimization techniques: automated exposure control; mA and/or kV adjustment per patient size (includes targeted exams where dose is matched to clinical indication); or iterative reconstruction. Contrast material: OMNIPAQUE 350; Contrast volume: 100 ml; Contrast route: INTRAVENOUS (IV); COMPARISON: CT head wo con* [id number] 06/25/2024 5:24 PM RADIATION DOSE METRICS: Total DLP (mGy-cm): 557.8 FINDINGS: Limitations: Suboptimal contrast opacification of large vessels of the brain. ANTERIOR CIRCULATION: Right internal carotid artery: Intracranial segment is patent with no significant stenosis. No aneurysm. Right middle cerebral artery: No occlusion or significant stenosis. No aneurysm. Right anterior cerebral artery: No occlusion or significant stenosis. No aneurysm. Left internal carotid artery: Intracranial segment is patent with no significant stenosis. No aneurysm. Left middle cerebral artery: No occlusion or significant stenosis. No aneurysm. Left anterior cerebral artery: No occlusion or significant stenosis. No aneurysm. POSTERIOR CIRCULATION: Right vertebral artery: No occlusion or significant stenosis. No aneurysm. Left vertebral artery: No occlusion or significant stenosis. No aneurysm. Basilar artery: No occlusion or significant stenosis. No aneurysm. Right posterior cerebral artery: No occlusion or significant stenosis. No aneurysm. Left posterior cerebral artery: No occlusion or significant stenosis. No aneurysm. Brain: No definite mass, mass effect, or midline shift. Cerebral ventricles: No ventriculomegaly. Bones/joints: Unremarkable. No acute fracture. Soft tissues: Unremarkable. PROCEDURE INFORMATION: Exam: CTA Neck With Contrast Exam date and time: 06/25/2024 5:26 PM Age: 69 years old Clinical indication: Pain; Headache TECHNIQUE: Imaging protocol: Computed tomographic angiography of the neck with contrast. Exam focused on the cervical segments of the vasculature. 3D rendering (Not supervised by radiologist): MIP and/or 3D reconstructed images were created by the technologist. Radiation optimization: All CT scans at this facility use at least one of these dose optimization techniques: automated exposure control; mA and/or kV adjustment per patient size (includes targeted exams where dose is matched to clinical indication); or iterative reconstruction. Contrast material: OMNIPAQUE 350; Contrast volume: 100 ml; Contrast route: INTRAVENOUS (IV); COMPARISON: MR cervical spine wo/w [id number] 11/15/2023 9:21 AM RADIATION DOSE METRICS: Total DLP (mGy-cm): 557.8 FINDINGS: Limitations: Suboptimal contrast opacification of the large vessels of the neck. Right common carotid artery: No stenosis. No dissection or occlusion. Right internal carotid artery: No stenosis of the extracranial segment. No dissection or occlusion. Right external carotid artery: No occlusion or stenosis of the origin. Left common carotid artery: No stenosis. No dissection or occlusion. Left internal carotid artery: No stenosis of the extracranial segment. No dissection or occlusion. Left external carotid artery: No occlusion or stenosis of the origin. Right vertebral artery: No stenosis. No dissection or occlusion. Left vertebral artery: No stenosis. No dissection or occlusion. Soft tissues: Normal. No significant soft tissue swelling. Bones/joints: No acute fracture. CT/CT angio headneck* [id number] IMPRESSION: Limited exam. No evident large vessel stenosis or occlusion. IMPRESSION: Limited exam. No evident significant stenosis or occlusion. REFERENCES: NASCET CRITERIA. The degree of stenosis in the cervical segment of the internal carotid artery is based on NASCET criteria. Normal is no stenosis. Mild is less than 50% stenosis. Moderate is 50-69% stenosis. Severe is 70% to 99% stenosis. Total occlusion is no detectable patent lumen.
--- NOTE | 2024-06-25 14:24 | CTR_ITS ---
PROCEDURE INFORMATION: Exam: CT Head Without Contrast Exam date and time: 06/25/2024 5:24 PM Age: 69 years old Clinical indication: Visual disturbance; Additional info: Headache TECHNIQUE: Imaging protocol: Computed tomography of the head without contrast. Radiation optimization: All CT scans at this facility use at least one of these dose optimization techniques: automated exposure control; mA and/or kV adjustment per patient size (includes targeted exams where dose is matched to clinical indication); or iterative reconstruction. COMPARISON: MR head wo/w con [id number] 11/15/2023 8:39 AM RADIATION DOSE METRICS: Total DLP (mGy-cm): 1184.1 FINDINGS: Brain: No evidence of intra-axial or extra-axial hemorrhage. No mass effect or midline shift. Ferrera-white differentiation is maintained. Basilar cisterns are patent. Cerebral ventricles: No hydrocephalus. Paranasal sinuses: The visualized paranasal sinuses are well aerated. Mastoid air cells: The visualized mastoids and middle ears are clear. Bones: Calvarium is intact. No evidence of acute fracture. Soft tissues: No gross soft tissue abnormality. CT/CT head wo con* [id number] IMPRESSION: 1. No acute intracranial abnormality.
--- NOTE | 2024-06-25 14:24 | ED_ITS ---
Documented by User: Td Bautista DO 06/26/24 06:11 HPI - Headache 2 General: Chief Complaint: Headache Stated Complaint: mahnaz sent Time Seen by Provider: 06/25/24 14:10 History of Present Illness: 69-year-old male presents to the emergen cy room with complaints of a headache. He gets throbbing headaches intermittently for the last 2 months he does notice anything that exacerbates or relieves on the last for about 2 to 3 hours and resolve he is tried various [id number] medications with no relief. He was seeing Dr. Beaver for his Parkinson's today and began having Whitney's episode DrDougie Beaver became concerned about an aneurysm and diverted him to the emergency room. He states he feels like his head will explode when he has these episodes. No history of nausea or vomiting. Nurses notes that he is not having a headache now but he tells me he is having a severe headache at the time that I seen him. Dr. Beaver had related to me he was having a headache while he was there as well. No fever sweats or chills. Associated symptoms: Deny chest pain, fever(s) or rash Related Data Home Medications Medication Instructions Recorded Confirmed acetaminophen 325 mg capsule 650 mg PO QID PRN Pain 11/15/22 06/25/24 carbidopa 25 mg-levodopa 100 mg 1 tab PO QID 06/21/24 06/25/24 tablet allopurinol 100 mg tablet 200 mg PO DAILY 06/25/24 06/25/24 apixaban 5 mg tablet (Eliquis) 5 mg PO Q12H 06/25/24 06/25/24 hydrochlorothiazide 12.5 mg capsule 12.5 mg PO DAILY 06/25/24 06/25/24 lisinopril 30 mg tablet 30 mg PO DAILY 06/25/24 06/25/24 Previous Rx's Medication Instructions Recorded fluticasone furoate 27.5 2 spray intranasal DAILY #5.9 mL 07/15/23 mcg/actuation nasal spray,suspension (Flonase Sensimist) Allergies Allergy/AdvReac Type Severity Reaction Status Date / Time No Known Allergies Allergy Verified 06/25/24 13:18 Review of Systems 2 Const: Denies: fever(s) or chills Card: Denies: chest pain Resp: Denies: dyspnea GI: Denies: abdominal pain : Denies: dysuria, urinary frequency or urinary urgency Musc: Denies: neck pain or back pain Skin/Breast: Denies: rash Neuro: Reports: headache(s) PFSH ED 2 PFSH: Surgical History H/O shoulder surgery Family History Father Diabetes Chronic kidney disease (CKD) Hypertension Mother Dementia Brother Hypertension Grandmother Stroke Denies family history of Hyperlipidemia Lung disease Cancer Social History Smoking and tobacco/nicotine status: former use of tobacco/nicotine Quit status (tobacco/nicotine): has quit using Year quit tobacco: 1975 3yrhx Second hand smoke exposure: No Alcohol intake: never Substance/Drug Use: never Adopted: No Lives independently: Yes Household members: spouse Housing: House Marital status: service: No Current occupational status: employed Pets and animals: Yes Do you think of yourself as: Straight/Heterosexual Current gender identity: Male Physical Exam 2 Const: COMMON NORMALS: no acute distress GENERAL APPEARANCE: cooperative and comfortable ORIENTATION/CONSCIOUSNESS: Yes awake, Yes oriented to person, Yes oriented to place and Yes oriented to time HENMT: COMMON NORMALS: normocephalic, atraumatic and hearing grossly normal bilaterally HEAD & SCALP: normocephalic and atraumatic Resp: COMMON NORMALS: normal respiratory effort, No retractions, No use of accessory muscles and clear to auscultation bilaterally AUSCULTATION: clear to auscultation bilaterally Cardio: COMMON NORMALS: regular rate, regular rhythm and No murmurs present (Cardio) RATE: regular rate RHYTHM: regular rhythm GI: COMMON NORMALS: Soft to palpation and No hepatosplenomegaly present A USCULTATION: Yes normoactive bowel sounds PALPATION: Yes Soft to palpation, No Tenderness to palpation present (GI), No Guarding due to palpation present (GI) and Yes No hepatosplenomegaly present Extremity: COMMON NORMALS: normal to inspection, capillary refill normal, no clubbing, cyanosis or edema, no calf tenderness and no pedal edema Neuro: SENSORIUM/ORIENTATION: Yes oriented to person, Yes oriented to place and Yes oriented to time OTHER: No focal neurologic deficits noted Skin: COMMON NORMALS: no rashes or lesions noted GENERAL SKIN EXAM: no rashes or lesions noted Course 2 Vital Signs: Vital signs: Vital Signs Temperature 98.1 F 06/25/24 14:14 Pulse Rate 48 L 06/25/24 19:51 Respiratory Rate 18 06/25/24 19:51 Blood Pressure 122/73 06/25/24 19:51 Pulse Oximetry 97 06/25/24 19:51 Oxygen Delivery Wi thod Room Air 06/25/24 18:30 MDM - Headache Medical Decision Making Care signed out to Dr. Cavazos at change of shift. See final notes for diagnosis and disposition. Patient care was transitioned to oh at shift change by Dr. Bautista. Awaiting CT head and CTA head reads. CT head: No acute intracranial process. no intracranial hemorrhage, no evidence of infarct. no evidence of acute fracture.This was reviewed and interpreted by myself the ER physician. CTA of the head and neck: No obvious stenosis or occlusions are identified. No mass. This was reviewed and interpreted by myself the emergency room physician. I also reviewed the radiology report. Lab work is unremarkable. No leukocytosis. No anemia. No renal failure. Assessment and plan: Headache - Discharged home - Discussed plan with patient. Answered any questions. - Evaluation and treatment of this problem were appropriate in the emergency setting. Lab Data 06/25/24 14:43 06/25/24 14:[address] 06/25/24 14:24 IMPRESSION: 1. No acute intracranial abnormality. Head/Neck CTA 06/25/24 14:24 IMPRESSION: Limited exam. No evident large vessel stenosis or occlusion. IMPRESSION: Limited exam. No evident significant stenosis or occlusion. REFERENCES: NASCET CRITERIA. The degree of stenosis in the cervical segment of the internal carotid artery is based on NASCET criteria. Normal is no stenosis. Mild is less than 50% stenosis. Moderate is 50-69% stenosis. Severe is 70% to 99% stenosis. Total occlusion is no detectable patent lumen. Laboratory Results WBC 8.12 10^3/uL (3.29-11.43) 06/25/24 14:43 RBC 4.82 10^6/uL (3.85-5.65) 12/16/24 14:43 Hgb 14.40 g/dL (11.27-16.99) 06/25/24 14:43 Hct 42.8 % (37-53) 06/25/24 14:43 MCV 88.8 fl (82-101) 06/25/24 14:43 MCH 29.9 pg (27-33) 06/25/24 14:43 MCHC 33.6 g/dL (30-55) 06/25/24 14:43 RDW 12.7 % (12.1-15.1) 06/25/24 14:43 Plt Count 230 10^3/cmm (157-399) 06/25/24 14:43 MPV 10.0 fL (7.4-10.4) 06/25/24 14:43 Neut % (Auto) 65.5 % 06/25/24 14:43 Lymph % (Auto) 24.5 % 06/25/24 14:43 [place] % (Auto) 6.7 % 06/25/24 14:43 Eos % (Auto) 1.8 % 06/25/24 14:43 Baso % (Auto) 0.5 % 06/25/24 14:43 Neut # (Auto) 5.32 10^3/uL (1.8-7.7) 06/25/24 14:43 Lymph # (Auto) 2.0 10^3/uL (0.8-4.8) 06/25/24 14:43 [place] # (Auto) 0.5 10^3/uL (0.2-0.9) 06/25/24 14:43 Eos # (Auto) 0.2 10^3/uL (0.0-0.8) 06/25/24 14:43 Baso # (Auto) 0.0 10^3/uL (0.0-0.1) 06/25/24 14:43 Nucleated RBC % (auto) 0 % 06/25/24 14:43 Nucleated RBCs # 0.0 /100WBC 06/25/24 14:43 Sodium 142 mmol/L (136-145) 06/25/24 14:43 Potassium 4.2 mmol/L (3.5-5.1) 06/25/24 14:43 Chloride 102 mmol/L (98-107) 06/25/24 14:43 Carbon Dioxide 27 mmol/L (22-29) 06/25/24 14:43 Anion Gap 17.2 (5-19) 06/25/24 14:43 BUN 20 mg/dL (8-23) 06/25/24 14:43 Creatinine 1.1 mg/dL (0.7-1.2) 06/25/24 14:43 GFR Calculation 66.6 mL/min (90-130) L 06/25/24 14:43 Glucose 108 mg/dL (65-115) 06/25/24 14:43 Calculated Osmolality 297 mOsm/kg (285-295) H 06/25/24 14:43 Calcium 8.9 mg/dL (8.5-10.5) 06/25/24 14:43 Total Bilirubin 0.5 mg/dL (0.15-1.2) 06/25/24 14:43 AST 10 U/L (0-40) 06/25/24 14:43 ALT < 5 U/L (0-41) 06/25/24 14:43 Alkaline Phosphatase 75 U/L (40-130) 06/25/24 14:43 Total Protein 6.3 g/dL (6.6-8.7) L 06/25/24 14:43 Albumin 3.8 g/dL (3.5-5.2) 06/25/24 14:43 Globulin 2.5 g/dL (1.3-4.6) 06/25/24 14:43 Discharge Plan Discharge Patient Disposition: Home Clinical Impression: Headache Condition: Stable Prescriptions: No Action acetaminophen 325 mg capsule 650 mg PO QID PRN (Reason: Pain) Flonase Sensimist 27.5 mcg/actuation spray,suspension 2 spray intranasal DAILY Qty: 5.9 0RF Rx Instructions: into each nostril carbidopa-levodopa 25-100 mg tablet 1 tab PO QID allopurinol 100 mg tablet 200 mg PO DAILY Rx Instructions: Take 2 tablets by mouth once daily hydrochlorothiazide 12.5 mg capsule 12.5 mg PO DAILY Rx Instructions: TAKE 1 CAPSULE BY MOUTH ONCE DAILY @ 0900 lisinopril 30 mg tablet 30 mg PO DAILY Rx Instructions: Take 1 tablet by mouth once daily Eliquis 5 mg tablet 5 mg PO Q12H Rx Instructions: TAKE 1 TABLET BY MOUTH EVERY 12 HOURS Discharge Orders: Discharge ED (Routine); Ordered 06/25/24 Ordered By: Jazmín Cavazos Referrals: Kraig Beaver MD [Physician] - 4-7 days (Please follow-up with Dr. Mahnaz FORD to continue your workup for your headaches.) Brandi Rizo FNP [Primary Care Provider] - Discharge Diet: Usual diet Discharge Activity: Increase activity as tolerated Patient Instructions: Opioid Safety, Pain Management Activity Restrictions/Additional Instructions: Thank you for choosing [facility] for your healthcare needs today. Please realize this is an emergency room and that we are providing you with a medical screening exam and this may not be complete and all inclusive of all the testing and or work up that you may need to determine your ailment or severity of your illness. You have been screened and evaluated and felt safe for discharge. Health conditions do change or evolve sometimes and as such it is important that you follow up with your Primary Doctor to be re checked, 3-5 days is a general good time frame for follow up. You are always welcome to return to the ED for re assessment if your symptoms are worsening or you have new concerns Coding Level of Care Code ED Hospice Clinical Marketer for Chg Fwd Documented by User: Jazmín Cavazos MD 06/25/24 19:31 HPI - Headache 2 General: Chief Complaint: Headache Stated Complaint: mahnaz sent Time Seen by Provider: 06/25/24 14:10 Related Data Home Medications Medication Instructions Recorded Confirmed acetaminophen 325 mg capsule 650 mg PO QID PRN Pain 11/15/22 06/25/24 carbidopa 25 mg-levodopa 100 mg 1 tab PO QID 06/21/24 06/25/24 tablet allopurinol 100 mg tablet 200 mg PO DAILY 06/25/24 06/25/24 apixaban 5 mg tablet (Eliquis) 5 mg PO Q12H 06/25/24 06/25/24 hydrochlorothiazide 12.5 mg capsule 12.5 mg PO DAILY 06/25/24 06/25/24 lisinopril 30 mg tablet 30 mg PO DAILY 06/25/24 06/25/24 Previous Rx's Medication Instructions Recorded fluticasone furoate 27.5 2 spray intranasal DAILY #5.9 mL 07/15/23 mcg/actuation nasal spray,suspension (Flonase Sensimist) Allergies Allergy/AdvReac Type Severity Reaction Status Date / Time No Known Allergies Allergy Verified 06/25/24 13:18 PFSH ED 2 PFSH: Surgical History H/O shoulder surgery Family History Father Diabetes Chronic kidney disease (CKD) Hypertension Mother Dementia Brother Hypertension Grandmother Stroke Denies family history of Hyperlipidemia Lung disease Cancer Social History Smoking and tobacco/nicotine status: former use of tobacco/nicotine Quit status (tobacco/nicotine): has quit using Year quit tobacco: 1975 3yrhx Second hand smoke exposure: No Alcohol intake: never Substance/Drug Use: never Adopted: No Lives independently: Yes Household members: spouse Housing: House Marital status: service: No Current occupational status: employed Pets and animals: Yes Do you think of yourself as: Straight/Heterosexual Current gender identity: Male Course 2 Vital Signs: Vital signs: Vital Signs Temperature 98.1 F 06/25/24 14:14 Pulse Rate 48 L 06/25/24 19:51 Respiratory Rate 18 06/25/24 19:51 Blood Pressure 122/73 06/25/24 19:51 Pulse Oximetry 97 06/25/24 19:51 Oxygen Delivery Wi thod Room Air 06/25/24 18:30 MDM - Headache Medical Decision Making Patient care was transitioned to oh at shift change by Dr. Bautista. Awaiting CT head and CTA head reads. CT head: No acute intracranial process. no intracranial hemorrhage, no evidence of infarct. no evidence of acute fracture.This was reviewed and interpreted by myself the ER physician. CTA of the head and neck: No obvious stenosis or occlusions are identified. No mass. This was reviewed and interpreted by myself the emergency room physician. I also reviewed the radiology report. Lab work is unremarkable. No leukocytosis. No anemia. No renal failure. Assessment and plan: Headache - Discharged home - Discussed plan with patient. Answered any questions. - Evaluation and treatment of this problem were appropriate in the emergency setting. Lab Data 06/25/24 14:43 06/25/24 14:[address] 06/25/24 14:24 IMPRESSION: 1. No acute intracranial abnormality. Head/Neck CTA 06/25/24 14:24 IMPRESSION: Limited exam. No evident large vessel stenosis or occlusion. IMPRESSION: Limited exam. No evident significant stenosis or occlusion. REFERENCES: NASCET CRITERIA. The degree of stenosis in the cervical segment of the internal carotid artery is based on NASCET criteria. Normal is no stenosis. Mild is less than 50% stenosis. Moderate is 50-69% stenosis. Severe is 70% to 99% stenosis. Total occlusion is no detectable patent lumen. Laboratory Results WBC 8.12 10^3/uL (3.29-11.43) 06/25/24 14:43 RBC 4.82 10^6/uL (3.85-5.65) 06/25/24 14:43 Hgb 14.40 g/dL (11.27-16.99) 06/25/24 14:43 Hct 42.8 % (37-53) 06/25/24 14:43 MCV 88.8 fl (82-101) 06/25/24 14:43 MCH 29.9 pg (27-33) 06/25/24 14:43 MCHC 33.6 g/dL (30-55) 06/25/24 14:43 RDW 12.7 % (12.1-15.1) 06/25/24 14:43 Plt Count 230 10^3/cmm (157-399) 06/25/24 14:43 MPV 10.0 fL (7.4-10.4) 06/25/24 14:43 Neut % (Auto) 65.5 % 06/25/24 14:43 Lymph % (Auto) 24.5 % 06/25/24 14:43 [place] % (Auto) 6.7 % 06/25/24 14:43 Eos % (Auto) 1.8 % 06/25/24 14:43 Baso % (Auto) 0.5 % 06/25/24 14:43 Neut # (Auto) 5.32 10^3/uL (1.8-7.7) 06/25/24 14:43 Lymph # (Auto) 2.0 10^3/uL (0.8-4.8) 06/25/24 14:43 [place] # (Auto) 0.5 10^3/uL (0.2-0.9) 06/25/24 14:43 Eos # (Auto) 0.2 10^3/uL (0.0-0.8) 06/25/24 14:43 Baso # (Auto) 0.0 10^3/uL (0.0-0.1) 06/25/24 14:43 Nucleated RBC % (auto) 0 % 06/25/24 14:43 Nucleated RBCs # 0.0 /100WBC 06/25/24 14:43 Sodium 142 mmol/L (136-145) 06/25/24 14:43 Potassium 4.2 mmol/L (3.5-5.1) 06/25/24 14:43 Chloride 102 mmol/L (98-107) 06/25/24 14:43 Carbon Dioxide 27 mmol/L (22-29) 06/25/24 14:43 Anion Gap 17.2 (5-19) 06/25/24 14:43 BUN 20 mg/dL (8-23) 06/25/24 14:43 Creatinine 1.1 mg/dL (0.7-1.2) 06/25/24 14:43 GFR Calculation 66.6 mL/min (90-130) L 06/25/24 14:43 Glucose 108 mg/dL (65-115) 06/25/24 14:43 Calculated Osmolality 297 mOsm/kg (285-295) H 06/25/24 14:43 Calcium 8.9 mg/dL (8.5-10.5) 06/25/24 14:43 Total Bilirubin 0.5 mg/dL (0.15-1.2) 06/25/24 14:43 AST 10 U/L (0-40) 06/25/24 14:43 ALT < 5 U/L (0-41) 06/25/24 14:43 Alkaline Phosphatase 75 U/L (40-130) 06/25/24 14:43 Total Protein 6.3 g/dL (6.6-8.7) L 06/25/24 14:43 Albumin 3.8 g/dL (3.5-5.2) 06/25/24 14:43 Globulin 2.5 g/dL (1.3-4.6) 06/25/24 14:43 All radiology interpretation(s) finalized by discharge Discharge Plan Discharge Patient Disposition: Home Clinical Impression: Headache Condition: Stable Prescriptions: No Action acetaminophen 325 mg capsule 650 mg PO QID PRN (Reason: Pain) Flonase Sensimist 27.5 mcg/actuation spray,suspension 2 spray intranasal DAILY Qty: 5.9 0RF Rx Instructions: into each nostril carbidopa-levodopa 25-100 mg tablet 1 tab PO QID allopurinol 100 mg tablet 200 mg PO DAILY Rx Instructions: Take 2 tablets by mouth once daily hydrochlorothiazide 12.5 mg capsule 12.5 mg PO DAILY Rx Instructions: TAKE 1 CAPSULE BY MOUTH ONCE DAILY @ 0900 lisinopril 30 mg tablet 30 mg PO DAILY Rx Instructions: Take 1 tablet by mouth once daily Eliquis 5 mg tablet 5 mg PO Q12H Rx Instructions: TAKE 1 TABLET BY MOUTH EVERY 12 HOURS Discharge Orders: Discharge ED (Routine); Ordered 06/25/24 Ordered By: Jazmín Cavazos Referrals: Kraig Beaver MD [Physician] - 4-7 days (Please follow-up with Dr. Mahnaz FORD to continue your workup for your headaches.) Brandi Rizo FNP [Primary Care Provider] - Discharge Diet: Usual diet Discharge Activity: Increase activity as tolerated Patient Instructions: Opioid Safety, Pain Management Activity Restrictions/Additional Instructions: Thank you for choosing [facility] for your healthcare needs today. Please realize this is an emergency room and that we are providing you with a medical screening exam and this may not be complete and all inclusive of all the testing and or work up that you may need to determine your ailment or severity of your illness. You have been screened and evaluated and felt safe for discharge. Health conditions do change or evolve sometimes and as such it is important that you follow up with your Primary Doctor to be re checked, 3-5 days is a general good time frame for follow up. You are always welcome to return to the ED for re assessment if your symptoms are worsening or you have new concerns Coding Level of Care Code ED Hospice Clinical Marketer for Angelo Guzman
[2024-06-25 15:01] LABS: Basophils % 0.5 %; Eosinophils # 0.2 10^3/uL (0.0-0.8); Eosinophils % 1.8 %; Hematocrit 42.8 % (37-53); Lymphocytes % 24.5 %; Mean Corpuscular HGB Conc 33.6 g/dL (30-55); Mean Corpuscular Hemoglobin 29.9 pg (27-33); Mean Corpuscular Volume 88.8 fl (82-101); Monocytes # 0.5 10^3/uL (0.2-0.9); Monocytes % 6.7 %; Neutrophils # 5.32 10^3/uL (1.8-7.7); Neutrophils % 65.5 %; Nucleated Red Blood Cells % 0 %; Platelet Count 230 10^3/cmm (157-399); Red Blood Count 4.82 10^6/uL (3.85-5.65); Red Cell Distribution Width 12.7 % (12.1-15.1); White Blood Count 8.12 10^3/uL (3.29-11.43)
[2024-06-25 15:19] LABS: Alanine Aminotransferase < 5 U/L (0-41); Albumin Level 3.8 g/dL (3.5-5.2); Alkaline Phosphatase 75 U/L (40-130); Anion Gap 17.2 (5-19); Aspartate Amino Transferase 10 U/L (0-40); Blood Urea Nitrogen 20 mg/dL (8-23); Calcium 8.9 mg/dL (8.5-10.5); Carbon Dioxide 27 mmol/L (22-29); Chloride 102 mmol/L (98-107); Creatinine Clr Calc Pharmacy 79.6695; Globulin 2.5 g/dL (1.3-4.6); Glomerular Filtration Rate 66.6 mL/min (90-130); Glucose 108 mg/dL (65-115); Osmolality Calculated 297 mOsm/kg (285-295); Potassium 4.2 mmol/L (3.5-5.1); Sodium 142 mmol/L (136-145); Total Bilirubin 0.5 mg/dL (0.15-1.2); Total Protein 6.3 g/dL (6.6-8.7)
== END 2024-06-25 19:50 | disposition home or self-care (01) ==
PROVIDERS: Family Medicine; Emergency Provider Emergency Medicine; PCP Nurse Practitioner Family
DX: R51.9 Headache, unspecified (principal); Z79.01 Long term (current) use of anticoagulants; Z87.891 Personal history of nicotine dependence
CPT/HCPCS: 36415; 70450; 70496; 70498; 80053; 85025; 99212; 99284; Q9967

== ENCOUNTER → 2024-07-23 11:29 | Outpatient (BNVA) | payer MEDICARE, SELFPAY | PROVIDERS: PCP Nurse Practitioner Family; Visit Provider Psychiatry & Neurology Neurology | DX: M54.2 Cervicalgia (principal); G20.B2 Parkinson's disease with dyskinesia, with fluctuations; R29.90 Unspecified symptoms and signs involving the nervous system; R26.81 Unsteadiness on feet; R55 Syncope and collapse; R29.2 Abnormal reflex; R00.1 Bradycardia, unspecified; R07.9 Chest pain, unspecified | CPT/HCPCS: 99212 ==

== ENCOUNTER → 2024-08-08 07:54 | Outpatient (BNVA) | payer MEDICARE, SELFPAY | PROVIDERS: PCP Nurse Practitioner Family; Visit Provider Nurse Practitioner Family | DX: D22.4 Melanocytic nevi of scalp and neck (principal); L82.1 Other seborrheic keratosis; D48.5 Neoplasm of uncertain behavior of skin; L57.0 Actinic keratosis | CPT/HCPCS: 11102; 17000; 99203 ==

== ENCOUNTER → 2024-08-31 07:54 | Outpatient (BNVA) | payer MEDICARE, SELFPAY | PROVIDERS: PCP Nurse Practitioner Family; Visit Provider Dermatology | DX: C44.612 Basal cell carcinoma of skin of right upper limb, including shoulder (principal); C44.519 Basal cell carcinoma of skin of other part of trunk | CPT/HCPCS: 12034; 17313; 99213 ==

== ENCOUNTER → 2024-11-05 08:53 | Outpatient (BNVA) | payer MEDICARE, SELFPAY | PROVIDERS: PCP Nurse Practitioner Family; Visit Provider Nurse Practitioner Family | DX: M10.9 Gout, unspecified (principal); I10 Essential (primary) hypertension | CPT/HCPCS: 80053; 80061; 84550 ==

== ENCOUNTER → 2024-11-21 13:12 | Outpatient (BNVA) | payer MEDICARE, SELFPAY | PROVIDERS: PCP Nurse Practitioner Family; Visit Provider Psychiatry & Neurology Neurology | DX: G20.B2 Parkinson's disease with dyskinesia, with fluctuations (principal); G20.A1 Parkinson's disease without dyskinesia, without mention of fluctuations; R29.90 Unspecified symptoms and signs involving the nervous system; R26.81 Unsteadiness on feet; R55 Syncope and collapse; M54.2 Cervicalgia; R29.2 Abnormal reflex; R00.1 Bradycardia, unspecified; R07.9 Chest pain, unspecified | CPT/HCPCS: 99212 ==

== ENCOUNTER → 2025-04-22 07:43 | Outpatient (BNVA) | payer MEDICARE, SELFPAY | PROVIDERS: PCP Nurse Practitioner Family; Referring Provider Nurse Practitioner Family; Visit Provider Nurse Practitioner | DX: G20.A1 Parkinson's disease without dyskinesia, without mention of fluctuations (principal); I10 Essential (primary) hypertension; R03.0 Elevated blood-pressure reading, without diagnosis of hypertension | CPT/HCPCS: 36415; 82607; 84443; 99213 ==

== ENCOUNTER → 2025-05-10 13:55 | Outpatient (BNVA) | payer MEDICARE, SELFPAY | PROVIDERS: PCP Nurse Practitioner Family; Visit Provider Nurse Practitioner Family | DX: L57.8 Other skin changes due to chronic exposure to nonionizing radiation (principal); L81.4 Other melanin hyperpigmentation; Z08 Encounter for follow-up examination after completed treatment for malignant neoplasm; Z85.828 Personal history of other malignant neoplasm of skin; D48.5 Neoplasm of uncertain behavior of skin | CPT/HCPCS: 11102; 99213 ==